=== PATIENT | female | born 1950 | race Caucasian/White ===

== ENCOUNTER 2016-09-18 07:54 | Outpatient (CLI) | payer BC ==
[~2016-09-18 07:54] MED LIST: AMLODIPINE BESYL5 MG PO; LOSARTAN POTAS100 MG PO; NORCO1 TA1 PO; VITAMIN D-31000 UNIT PO
--- NOTE | 2016-09-20 12:48 | DIAGNOSTIC IMAGING REPORT ---
PROCEDURE: MG BILATERAL SCREENING W/CAD INDICATION: SCREENING. Paternal great aunts x 4 with a history of breast cancer TECHNIQUE: Bilateral CC and MLO digital views. COMPARISON: Mammograms 09/08/2015, 08/26/2014 and 07/16/2013. FINDINGS: Computer-aided detection applied. Moderately dense with scattered dystrophic calcifications. No change. IMPRESSION: 1. Negative mammogram RESULT CODE: 1- Negative. A. A negative report should not delay biopsy if a dominant or clinically suspicious mass is present. 10-15% of cancers are not identified by x-ray. B. A negative report may reinforce clinical impression. C. Adenosis and dense breasts may obscure an underlying neoplasm. D. False positive reports average 6-10%. E.. A yearly screening mammogram is recommended. A reminder letter will be scheduled.
== END 2016-09-18 23:00 ==
LOC: MAM SRH 07:54
DX: Z12.31 Encounter for screening mammogram for malignant neoplasm of breast (principal)